=== PATIENT | female | born 1975 | race Two or more races ===

== ENCOUNTER 2024-01-05 09:19 | Day surgery (SDC) | payer OTHER ==
[2023-12-29 10:18] VITALS: BP 130/80
[2023-12-29 10:38] LABS: PH,URINE 5.5 (5.0-8.0); URINE APPEARANCE Clear; URINE BILIRRUBIN Negative (NEGATIVE); URINE BLOOD Moderate; URINE COLOR Yellow; URINE GLUCOSE Negative (NEGATIVE); URINE KETONE Negative (NEGATIVE); URINE LEUKOCYTE Trace; URINE NITRATE Negative; URINE PROTEIN Negative (NEGATIVE); URINE UROBILINOGEN 0.2 E.U./dl
[2023-12-29 10:42] LABS: URINE BACTERIA 142.3 uL (0.0-1933); URINE EPITHELIAL CELLS 7.7 uL (0.0-38.8); URINE RBC 16.3 uL (0.0-20.8); URINE WBC 30.3 uL (0.0-23.2)
[2023-12-29 10:42] LABS: HEMATOCRIT 41.1 % (36.0-45.00); HEMOGLOBIN 13.6 g/dL (12.0-15.00); MEAN CORPUSCULAR HEMOGLOBIN 29.2 pg (27.00-32.0); MEAN CORPUSCULAR HGB CONC 33.2 g/dl (32.0-36.0); PLATELET COUNT 389 K/uL (150-450); RED BLOOD COUNT 4.67 M/uL (4.00-6.00); RED CELL DISTRIBUTION WIDTH 13.6 % (11.5-14.5)
[2023-12-29 11:14] LABS: INR 0.98; PARTIAL THROMBOPLASTIN TIME 27.9 SECONDS (22.0-34.0); PROTHROMBIN TIME 10.7 SECONDS (9.0-11.5)
[2023-12-29 11:38] LABS: ALBUMIN 3.9 gm/dL (3.4-5.0); BILIRUBIN TOTAL 0.46 mg/dL (0.3-1.2); CALCIUM 9.6 mg/dL (8.5-10.1); CREATININE SERUM 0.6 mg/dL (0.55-1.02); GFR 107.62; GLOBULINA 4.3 G/DL (2.4-3.5); PHOSPHOROUS 3.6 mg/dL (2.5-4.9); POTASSIUM 5.25 mEq/L (3.5-5.1); TOTAL PROTEIN 8.2 gm/dL (6.4-8.2)
[~2024-01-05 09:19] MED LIST: NORVASC5 MG PO; SYNTHROID50 MCG PO
[2024-01-05] MEDS ORDERED: METRONIDAZOLE/SODIUM CHLORIDE 500 MG/100 ML PIGGYBACK IV ONE (10:31)
[2024-01-05] MEDS ORDERED: CEFTRIAXONE SODIUM 2,000 MG VIAL ONE (10:31)
[2024-01-05] MEDS ORDERED: HEMOSTATIC MATRIX 1 KIT KIT TOP ONE (11:34)
[2024-01-05] MEDS ORDERED: DIBUCAINE 30 GM TUBE ONE (11:34)
[2024-01-05] MEDS ORDERED: BUPIVACAINE HCL/MPF 0.5% 30ML VIAL ONE (11:35)
[2024-01-05] MEDS ORDERED: LIDOCAINE HCL 1%/EPINEPHRINE 20ML VIAL IJ ONE (11:35)
[2024-01-05] MEDS ORDERED: POVIDONE-IODINE 118 ML BOTT TOP ONE (11:35)
[2024-01-05] MEDS ORDERED: NEURONTIN300 MG PO (12:24)
[2024-01-05] MEDS ORDERED: COLACE100 MG PO (12:24)
[2024-01-05] MEDS ORDERED: ACETAMINOPHEN500 M2 PO (12:24)
[2024-01-05] MEDS ORDERED: MORPHINE SULFATE 4 MG/ML VIAL IV ONE (15:45)
== END 2024-01-05 16:30 | disposition home or self-care (01) ==
LOC: CIR.AMB 09:19
PROVIDERS: ATTEND Surgery
DX: D12.9 Benign neoplasm of anus and anal canal (principal); Z88.1 Allergy status to other antibiotic agents; Z88.6 Allergy status to analgesic agent; I10 Essential (primary) hypertension; K62.89 Other specified diseases of anus and rectum